=== PATIENT | female | born 1995 | race Caucasian/White ===

== ENCOUNTER 2017-09-03 02:59 | Emergency (ER) | payer BC ==
[~2017-09-03] VITALS: Ht 160 cm; Wt 59.7 kg
[2017-09-03 03:07] VITALS: TEMP 36.8; Ht 160 cm; Wt 59.7 kg
[2017-09-03] MEDS ORDERED: PROPARACAINE HCL 0.5% OP SOLN 15 ML BTL ONE (03:15)
--- NOTE | 2017-09-03 03:33 | EMERGENCY ROOM VISIT NOTE ---
History First contact with patient: 03:12 Chief Complaint: EYE ASSESSMENT Stated Complaint: SCRATCHED LEFT EYE SWOLLEN, WATERING, PAIN History of Present Illness The patient is a 22 year old female who presents to the Emergency Room for evaluation of left eye pain. Accidentally scratced eye with mascara yesterday morning. Increasing pain since. Couldn't sleep due to pain today. Associated runny eye, pain, redness. No vision changes. No other injuries. Denies previous injuries. Denies contact use. Uses glasses periodically. No medications prior to arrival. Light makes worse, compression makes better. Review of Systems See HPI for pertinent positives & negatives. A total of 6 systems reviewed and were otherwise negative. Social History Smoking Status: Never Smoker Physical Exam Vital Signs Date Time Temp Pulse Resp B/P (MAP) Pulse Ox O2 Delivery O2 Flow Rate FiO2 09/03/17 03:07 36.8 67 16 112/73 99 Room Air Right Eye Acuity: 20/25 Left Eye Acuity: 20/40 Physical Exam GENERAL: Patient is well appearing and in no acute distress. HNT: No acute trauma, normocephalic atraumatic, mucous membranes moist, no nasal congestion, no scleral icterus. EYE: Normal pupils bilateral. Left corneal conjunctival erythema. Tearing of left eye. NEUROLOGIC: Alert and oriented, no acute motor or sensory deficits, no focal weakness, cranial nerves grossly intact. SKIN: No rash, no jaundice, no diaphoresis. Medical Decision & Procedures Medical Decision 22 yr old who poked self in left eye accidentally 12 hours ago. Fluorosciene exam with small left corneal abrasion. No evidence of globe rupture. Not a contact user. Will treat with erythromycin ointment and prn oxy ir to go. Advised picking up lubricant drops from pharmacy as well. Medication Reconcilliation Current Medication List: was personally reviewed by me Blood Pressure Screening Patient's blood pressure: Normal blood pressure Impression Primary Impression: Corneal abrasion, left Departure Information Dispostion Home / Self-Care Condition GOOD Referrals [facility] (PCP) Patient Instructions ED Eye Injury Corneal Abrasion, [facility] Additional Instructions You have received a narcotic pain medication. These medications may cause drowsiness and should not be used with other sedative medications. Do not drive , drink alcohol, perform dangerous activities, nor make important decisions after taking these medications. terminal clerk use or inappropriate use may lead to addiction.
[2017-09-03] MEDS ORDERED: ERYTHROMYCIN OP OINT 5 MG/GM 3.5 GM TUBE OP ONE (03:45)
[2017-09-03] MEDS ORDERED: OXYCODONE IR HOME PACK PO ONE (03:45)
[2017-09-03 03:53] VITALS: BP 111/72; PULSE 78; O2SAT 96
== END 2017-09-03 04:06 | disposition home or self-care (01) ==
LOC: C.EDB 03:03 → C.EDA 04:06
DX: S05.02XA Injury of conjunctiva and corneal abrasion without foreign body, left eye, initial encounter (principal); X58.XXXA Exposure to other specified factors, initial encounter